=== PATIENT | male | born 1980 | race Hispanic/Latino ===

== ENCOUNTER 2017-12-13 23:24 | Emergency (ER) | payer SELFPAY ==
[2017-12-14 00:11] LABS: Absolute Lymphocytes (CBC) 1.7 K/uL (0.7-4.9); Absolute Monocytes 0.7 K/uL (0.1-1.3); Absolute Neutrophil 3.4 K/uL (1.8-8.0); Basophils % 0.7 % (0-1.3); Eosinophils % 2.1 % (0-4.4); Hematocrit 42.3 % (39.6-49.0); Lymphocytes % 27.7 % (15.3-44.8); MCH 32.2 pg (27.0-35.0); MCV 91.8 fL (80-100); MPV 10.3 fL (7.6-11.3); Monocytes % 11.8 % (3.3-12.3)
[2017-12-14 00:23] LABS: ALT/SGPT 73 U/L (12-78); AST/SGOT 31 U/L (15-37); Albumin 3.7 g/dL (3.4-5.0); Alkaline Phosphatase 113 U/L (45-117); BUN Blood Urea Nitrogen 18 mg/dL (7-18); Bicarbonate 25 mmol/L (21-32); Bilirubin Total 0.7 mg/dL (0.2-1.0); Glucose Level 96 mg/dL (74-106); Potassium 3.6 mmol/L (3.5-5.1); Protein, Total 7.5 g/dL (6.4-8.2); Sodium Level 139 mmol/L (136-145)
--- NOTE | 2017-12-14 00:26 | EDPHYS ---
Physician Documentation [facility] Name: Pepe Hdz Age: 37 yrs Sex: Male : 1980 Arrival Date: 12/13/2017 Time: 23:24 Bed 7 Private MD: ED Physician Jair Ascencio HPI: 12/13 23:29 This 46 yrs old Male presents to ER via EMS with complaints of Chemical Exposure. 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 Area of ps1 exposure: hands. Context: The problem was sustained at a [employer]. Opened container and splashed on hands. They were treated with DTAM and showered for 30 minutes. . currently asymptomatic. Historical: - Allergies: 23:26 No Known Allergies; bp - Home Meds: 23:26 None [Active]; bp - PMHx: 23:26 None; bp - Immunization history:: Adult Immunizations up to date. - Social history:: Smoking status: Patient/guardian denies using tobacco. - Ebola Screening: : Patient negative for fever greater than or equal to 101.5 degrees Fahrenheit, and additional compatible Ebola Virus Disease symptoms Patient denies exposure to infectious person Patient denies travel to an Ebola-affected area in the 21 days before illness onset No symptoms or risks identified at this time. ROS: 23:29 Constitutional: Negative for fever, chills, and weight loss, Eyes: Negative for injury, ps1 pain, redness, and discharge, ENT: Negative for injury, pain, and discharge, Cardiovascular: Negative for chest pain, palpitations, and edema, Respiratory: Negative for shortness of breath, cough, wheezing, and pleuritic chest pain, Abdomen/GI: Negative for abdominal pain, nausea, vomiting, diarrhea, and constipation, Back: Negative for injury and pain, Skin: Negative for injury, rash, and discoloration, Neuro: Negative for headache, weakness, numbness, tingling, and seizure. Exam: 23:29 Constitutional: This is a well developed, well nourished patient who is awake, alert, ps1 and in no acute distress. Head/Face: Normocephalic, atraumatic. Eyes: Pupils equal round and reactive to light, extra-ocular motions intact. Lids and lashes normal. Conjunctiva and sclera are non-icteric and not injected. Chest/axilla: Normal chest wall appearance and motion. Nontender with no deformity. No lesions are appreciated. Cardiovascular: Regular rate and rhythm. No gallops, murmurs, or rubs. Normal PMI, no JVD. No pulse deficits. Respiratory: Lungs have equal breath sounds bilaterally, clear to auscultation and percussion. No rales, rhonchi or wheezes noted. No increased work of breathing, no retractions or nasal flaring. Abdomen/GI: Soft, non-tender, with normal bowel sounds. No distension or tympany. No guarding or rebound. No evidence of tenderness throughout. Skin: Warm, dry with normal turgor. Normal color with no rashes, no lesions, and no evidence of cellulitis. MS/ Extremity: Pulses equal, no cyanosis. Neurovascular intact. Full, normal range of motion. Neuro: Awake and alert, GCS 15, oriented to person, place, time, and situation. Cranial nerves II-XII grossly intact. Sensory grossly intact. Vital Signs: 23:26 BP 163 / 105; Pulse 87; Resp 16; Temp 98.8; Pulse Ox 98% ; Weight 96.16 kg; Height 5 bp ft. 8 in. (172.72 cm); 12/14 00:16 BP 135 / 93; Pulse 82; Resp 16; Pulse Ox 96% ; bp 12/13 23:26 Body Mass Index 32.23 (96.16 kg, 172.72 cm) bp MDM: 12/13 23:29 Data reviewed: vital signs, nurses notes. Data reviewed: and as a result, I will ps1 discharge patient. Counseling: I had a detailed discussion with the patient and/or guardian regarding: the historical points, exam findings, and any diagnostic results supporting the discharge/admit diagnosis. 12/14 00:22 Patient medically screened. ps1 12/13 23:33 Order name: CBC with Diff; Complete Time: 00:22 ps1 12/13 23:33 Order name: CMP; Complete Time: 00:23 ps1 Administered Medications: No medications were administered Disposition: 12/14/17 00:25 Discharged to Home. Impression: chemical exposure, Work place injury. - Condition is Stable. - Medication Reconciliation Form, Thank You Letter, Antibiotic Education, Prescription Opioid Use form. - Follow up: Private Physician; When: As needed; Reason: Recheck today's complaints, Continuance of care, Re-evaluation by your physician. Follow up: Emergency Department; When: As needed; Reason: Fever > 102 F, Trouble breathing, Worsening of condition. - Problem is new. - Symptoms are resolved. Signatures: Dispatcher [employer] EDMS Kyler Conn RN RN Jair Powell MD MD ps1 Corrections: (The following items were deleted from the chart) 00:34 00:25 12/14/2017 00:25 Discharged to Home. Impression: chemical exposure; Work place bp injury. Condition is Stable. Forms are Medication Reconciliation Form, Thank You Letter, Antibiotic Education, Prescription Opioid Use. Follow up: Private Physician; When: As needed; Reason: Recheck today's complaints, Continuance of care, Re-evaluation by your physician. Follow up: Emergency Department; When: As needed; Reason: Fever > 102 F, Trouble breathing, Worsening of condition. Problem is new. Symptoms are resolved. ps1
--- NOTE | 2017-12-14 00:26 | ER ---
Nurse's Notes [facility] Name: Pepe Hdz Age: 37 yrs Sex: Male : 1980 Arrival Date: 12/13/2017 Time: 23:24 Bed 7 Private MD: Diagnosis: chemical exposure;Work place injury Presentation: 12/13 23:24 Presenting complaint: EMS states: EXPOSURE TO 2,4-DICHLOROPHENOL. Transition of care: bp patient was not received from another setting of care. Onset of symptoms was December 13, 2017 at 22:30. Risk Assessment: Do you want to hurt yourself or someone else? Patient reports no desire to harm self or others. Initial Sepsis Screen: Does the patient meet any 2 criteria? No. Patient's initial sepsis screen is negative. Does the patient have a suspected source of infection? No. Patient's initial sepsis screen is negative. Care prior to arrival: DECON WITH PHENOL WASH x30 MIN. 23:24 Method Of Arrival: EMS: [facility] bp 23:24 Acuity: DEEPIKA 3 bp Triage Assessment: 23:26 General: Appears in no apparent distress. comfortable, Behavior is calm, cooperative, bp appropriate for age. Pain: Denies pain. Historical: - Allergies: 23:26 No Known Allergies; bp - Home Meds: 23:26 None [Active]; bp - PMHx: 23:26 None; bp - Immunization history:: Adult Immunizations up to date. - Social history:: Smoking status: Patient/guardian denies using tobacco. - Ebola Screening: : Patient negative for fever greater than or equal to 101.5 degrees Fahrenheit, and additional compatible Ebola Virus Disease symptoms Patient denies exposure to infectious person Patient denies travel to an Ebola-affected area in the 21 days before illness onset No symptoms or risks identified at this time. Screenin:28 Abuse screen: Denies threats or abuse. Denies injuries from another. Nutritional bp screening: No deficits noted. Tuberculosis screening: No symptoms or risk factors identified. Fall Risk None identified. Assessment: 23:28 Reassessment: SEE TRIAGE NOTE. SMALL REDDENED PATCHES NOTED TO BILATERAL HAND/WRIST bp AREA. PT DENIES ACUTE S/S. 12/14 00:33 Reassessment: PT D/C HOME AMBULATORY WITH [facility], DX WITH CHEMICAL EXPOSURE. bp Vital Signs: 12/13 23:26 BP 163 / 105; Pulse 87; Resp 16; Temp 98.8; Pulse Ox 98% ; Weight 96.16 kg; Height 5 bp ft. 8 in. (172.72 cm); 12/14 00:16 BP 135 / 93; Pulse 82; Resp 16; Pulse Ox 96% ; bp 12/13 23:26 Body Mass Index 32.23 (96.16 kg, 172.72 cm) bp ED Course: 12/13 23:24 Patient arrived in ED. bp 23:26 Triage completed. bp 23:26 Arm band placed on. bp 23:27 Jair Ascencio MD is Attending Physician. ps1 23:28 Patient has correct armband on for positive identification. Bed in low position. Call bp light in reach. Side rails up X2. 23:36 Inserted saline lock: 20 gauge in right forearm, using aseptic technique. Blood bp collected. 12/14 00:15 Kyler Conn, RN is Primary Nurse. bp 00:34 No provider procedures requiring assistance completed. Patient did not have IV access bp during this emergency room visit. Administered Medications: No medications were administered Outcome: 00:25 Discharge ordered by . ps1 00:34 Discharged to home ambulatory, with friend. bp 00:34 Condition: stable 00:34 Discharge instructions given to patient, Instructed on discharge instructions, follow up and referral plans. Demonstrated understanding of instructions, follow-up care. 00:34 Patient left the ED. bp Signatures: Kyler Conn, RUKHSANA RN bp Jair Ascencio MD MD ps1
== END 2017-12-14 00:34 | disposition home or self-care (01) ==
LOC: EDBD 23:24 → ER 23:24
DX: Z77.098 Contact with and (suspected) exposure to other hazardous, chiefly nonmedicinal, chemicals (principal); X58.XXXA Exposure to other specified factors, initial encounter; Y93.89 Activity, other specified; Y92.69 Other specified industrial and construction area as the place of occurrence of the external cause; Y99.0 Civilian activity done for income or pay
CPT/HCPCS: 36415; 80053; 85025; 99283